=== PATIENT | female | born 1960 | race Caucasian/White ===

== ENCOUNTER → 2018-05-07 | Outpatient (CLI) | payer OTHER ==
--- NOTE | 2018-05-07 13:42 | REP ---
LUMBAR SPINE COMPLETE: 05/07/2018. Clinical history: Low back pain with sciatica. Comparison: 08/04/2013. Lateral view shows normal lumbar lordosis. There is some facet arthropathy at L4-5 and L5-S1, a few millimeters of anterolisthesis of L4 on L5 noted due to facet arthropathy. There is no spondylolysis. The degree of facet arthropathy is increased on the left at L5-S1 since the 2013 study. There is no compression deformity, focal bone lesion, or other acute finding. The visualized ribs and lower thoracic levels were intact. Impression: 1. Facet arthropathy and degenerative disc changes at L5-S1, less at L4-5 with a few millimeters of anterolisthesis of L4 on L5. No compression fracture or acute finding. Electronically Signed by Clay Chapa MD 05/07/2018 05:52 P
--- NOTE | 2018-05-07 13:44 | REP ---
AP PELVIS WITH BILATERAL HIPS: 05/07/2018. Clinical history: Low back pain and pain extending down both lower extremities. Findings: AP pelvis: The pelvic ring is intact. Iliac wings are preserved. Minor sclerosis acetabular roof on both sides. There is facet arthropathy bilaterally, left greater than right at L5-S1, less at L4-5. SI joints symmetric and normal. Sacral ala and foramina intact. The acetabuli, ischia and symphysis pubis unremarkable. Hips grossly intact. Right hip: AP and frog-leg views show some sclerosis acetabular roof. I see no fracture or AVN. There is minimal spurring of the femoral head rim osteophyte. Left hip: AP and frog-leg views show some sclerosis acetabular roof. I see no fracture or AVN. There is minimal spurring of the femoral head rim osteophyte. Impression: 1. Minimal degenerative changes at the acetabular roof on both sides, no fracture, AVN or other acute finding. 2. Pelvic ring, ischia, iliac bones, and SI joints intact. 3. Facet arthropathy lower lumbar spine. Electronically Signed by Clay Chapa MD 05/07/2018 05:52 P
== END ==
LOC: M LRY 11:33
PROVIDERS: ATTEND Nurse Practitioner Family
DX: M25.552 Pain in left hip (principal); M25.551 Pain in right hip; M54.5 Low back pain; M51.36 Other intervertebral disc degeneration, lumbar region; M51.37 Other intervertebral disc degeneration, lumbosacral region

== ENCOUNTER → 2018-05-07 | Outpatient (CLI) | payer OTHER | LOC: M LRY 11:25 | PROVIDERS: ATTEND Nurse Practitioner Family | DX: M25.552 Pain in left hip (principal); M25.551 Pain in right hip; M54.5 Low back pain; Z53.9 Procedure and treatment not carried out, unspecified reason ==

== ENCOUNTER → 2018-07-10 | Outpatient (CLI) | payer OTHER ==
--- NOTE | 2018-07-10 10:04 | REPMRS ---
Patient History The patient states she had a clinical breast exam in 2017. No known family history of cancer. Digital Mammo Screening Bilat: July 10, 2018 - Exam #: [id number] Bilateral CC and MLO view(s) were taken. Technologist: Eli Hearn, Technologist Prior study comparison: January 17, 2017, bilateral digital mammo screening bilat performed at [facility]. FINDINGS: The breast tissue is extremely dense which could obscure a lesion on mammography. There is no evidence of cancer on this mammogram. No significant changes when compared with prior studies. Assessment: BI-RADS/ACR category 2 mammogram. Benign Findings. Recommendation Routine screening mammogram of both breasts in 1 year (for women over age 40). This mammogram was interpreted with the aid of an FDA-approved computer-aided dectection system. Electronically Signed By: Buster Rosales MD 07/10/18 [id number]
== END ==
LOC: M RAD 08:51
PROVIDERS: ATTEND Physician Assistant Medical
DX: Z12.31 Encounter for screening mammogram for malignant neoplasm of breast (principal)